=== PATIENT | female | born 1985 | race Caucasian/White ===

== ENCOUNTER 2024-03-28 06:19 | Day surgery (SDC) | payer BC, SELFPAY ==
[2024-03-28] VITALS (8 sets, daily range): BP systolic 92–111; BP diastolic 46–67; BMI 21.0
[2024-03-28] MEDS: CELEBREX 200 MG PO (11:57)
[2024-03-28] MEDS: TYLENOL 1000 MG PO (11:57)
[2024-03-28] MEDS: NORMOSOL-R/PLASMALYTE-A 1000 IV (12:23)
[2024-03-28] MEDS: DILAUDID 0.25 MG IV (15:23)
[2024-03-28] MEDS: ROXICODONE 5 MG PO (16:26)
== END 2024-03-28 17:12 | disposition home or self-care (01) ==
LOC: SDS 06:19
PROVIDERS: ATTENDING PHYSICIAN Specialist
DX: S83.231A Complex tear of medial meniscus, current injury, right knee, initial encounter (principal); X58.XXXA Exposure to other specified factors, initial encounter
CPT/HCPCS: 29881